=== PATIENT | female | born 1990 | race Caucasian/White ===

== ENCOUNTER 2019-06-09 19:17 | Emergency (ER) | payer BC, OTHER ==
[2019-06-09 19:42] LABS: BILIRUBIN,URINE NEGATIVE (NEGATIVE); CLARITY,URINE CLEAR; COLOR,URINE YELLOW; GLUCOSE, URINE (UA) NEGATIVE (NEGATIVE); KETONES,URINE NEGATIVE (NEGATIVE); LEUKOCYTE ESTERASE ,URINE NEGATIVE (NEGATIVE); NITRITE,URINE NEGATIVE (NEGATIVE); PH,URINE 6.5 (5-9); PROTEIN,URINE NEGATIVE (NEGATIVE)
[2019-06-09 19:54] LABS: AMORPHOUS SEDIMENT,UR RARE AMOR URATES /LPF; BACTERIA,URINE TRACE /HPF
[2019-06-09 19:57] LABS: BASOPHILS % (AUTO) 0 % (0-10); EOSINOPHILS # (AUTO) 0.2 10^3/uL (0.0-0.3); EOSINOPHILS % (AUTO) 3 % (0-10); HEMATOCRIT 34 % (35-52); HEMOGLOBIN 11.6 G/DL (11.5-16.0); LYMPHOCYTES # (AUTO) 2.7 X 10^3 (1.0-4.0); LYMPHOCYTES % (AUTO) 29 % (12-44); MEAN CORPUSCULAR HEMOGLOBIN 30 PG (25-34); MEAN CORPUSCULAR HGB CONC 34 G/DL (32-36); MEAN CORPUSCULAR VOLUME 86 FL (80-99); MEAN PLATELET VOLUME 10.1 FL (7.4-10.4); MONOCYTES # (AUTO) 0.6 X 10^3 (0.0-1.0); MONOCYTES % (AUTO) 6 % (0-12); NEUTROPHILS # (AUTO) 5.6 X 10^3 (1.8-7.8); NEUTROPHILS % (AUTO) 62 % (42-75); PLATELET COUNT 305 10^3/uL (130-400); RED CELL DISTRIBUTION WIDTH 12.2 % (10.0-14.5); WHITE BLOOD COUNT 9.1 10^3/uL (4.3-11.0)
[2019-06-09 20:12] LABS: ALANINE AMINOTRANSFERASE 25 U/L (0-55); ALBUMIN 3.9 GM/DL (3.2-4.5); ALKALINE PHOSPHATASE 55 U/L (40-136); BILIRUBIN,TOTAL 0.2 MG/DL (0.1-1.0); BUN/CREATININE RATIO 11; CALCIUM 9.2 MG/DL (8.5-10.1); CARBON DIOXIDE 21 MMOL/L (21-32); CHLORIDE 104 MMOL/L (98-107); CREATININE SERUM 0.65 MG/DL (0.60-1.30); GFR ESTIMATED > 60; GLUCOSE 80 MG/DL (70-105); POTASSIUM 3.7 MMOL/L (3.6-5.0); SODIUM 136 MMOL/L (135-145); TOTAL PROTEIN 6.9 GM/DL (6.4-8.2)
--- NOTE | 2019-06-09 20:23 | ED GU-Female ---
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 Pt reports onset of symptoms to be 06/03/19. Pt reports discomfort became severe this morning, but has gradually decreased since 1200. Denies nausea, vomiting, diarrhea, fever, chills, discharge, or vaginal bleeding. Pt reports to be approx 17wks . A&oX4. at side. Nursing Sepsis Screen: No Definite Risk Source: patient, spouse Exam Limitations: no limitations History of Present Illness Date Seen by Provider: Jun 09, 2019 Time Seen by Provider: 19:30 Initial Comments 28-year-old female patient presents with complaints of right lower quadrant discomfort 1 week. Patient reports pain has been intermittent and sharp in nature. Patient states pain had increased this a.m., but now rates pain at a 2/10. Pain is worse with standing for long periods. She is approximately 17 weeks gestation. Denies vaginal bleeding, vaginal discharge, nausea, vomiting, diarrhea, fever, constipation. Timing/Duration: week, intermittent, other (improved) Severity/Quality: sharp Location: RLQ Radiation: groin (radiates into the right groin) Activities at Onset: other (standing) Prior Genitourinary Problems: none Sexual [place] History: less than 2 months ago, single partner Modifying Factors: Worsens With Movement, Worsens With Other (worse with standing) Allergies and Home Medications Patient Home Medication List Home Medication List Reviewed: Yes Review of Systems Review of Systems Constitutional: No chills, No dizziness, No fever, No malaise EENTM: no symptoms reported Respiratory: No cough, No dyspnea on exertion, No orthopnea, No phlegm, No short of breath Cardiovascular: No chest pain, No edema, No palpitations, No syncope Gastrointestinal: see HPI, abdominal pain (RLQ); No constipation, No diarrhea, No hematemesis, No loss of appetite, No melena, No nausea, No vomiting Genitourinary: denies burning, denies discharge, denies dysuria, denies frequency, denies flank pain, denies hematuria : Yes Musculoskeletal: No back pain, No joint pain Skin: no symptoms reported Psychiatric/Neurological: No Symptoms Reported All Other Systemes Reviewed Negative Unless Noted: Yes (Negative excepted noted.) Past Rzkkyid-Pzedeo-Cdnpjg Hx Past Med/Social Hx: Reviewed Nursing Past Med/Soc Hx Patient Social History Alcohol Use: Denies Use Recreational Drug Use: No Smoking Status: Never a Smoker 2nd Hand Smoke Exposure: No Recent Foreign Travel: No Contact w/Someone Who Travel: No Recent Infectious Disease Expo: No Recent Hopitalizations: No Seasonal Allergies Seasonal Allergies: No Past Medical History Surgeries: No Respiratory: No Cardiac: No Neurological: No : Yes Hx : 1 Hx Para: 0 Hx Total # of Abortions (Sp): 0 Reproductive Disorders: No Female Reproductive Disorders: Denies Genitourinary: No Gastrointestinal: No Musculoskeletal: No Endocrine: No HEENT: No Cancer: No Psychosocial: No Integumentary: No Family Medical History Reviewed Nursing Family Hx No Pertinent Family Hx Physical Exam Vital Signs Vital Signs - First Documented 06/09/19 19:20 Temp 36.6 Pulse 91 Resp 17 B/P (MAP) 120/84 (96) Pulse Ox 100 O2 Delivery Room Air Capillary Refill : Less Than 3 Seconds Height, Weight, BMI Height: '" Weight: lbs. oz. kg; BMI Method: General Appearance: WD/WN, no apparent distress HEENT: PERRL/EOMI, pharynx normal Neck: supple, normal inspection Cardiovascular: normal peripheral pulses, regular rate, rhythm, no edema, no gallop, no JVD, no murmur Respiratory: lungs clear, normal breath sounds, no respiratory distress, no accessory muscle use Gastrointestinal: normal bowel sounds, soft, no pulsatile mass; No distended, No guarding, No rebound; tenderness (VERY MILD RLQ AND RT GROIN TTP), other (uterine fundus consistent with a 17 week gestation uterus.) Back: normal inspection, no CVA tenderness Extremities: no pedal edema, normal capillary refill Neurologic/Psychiatric: alert, normal mood/affect, oriented x 3 Skin: normal color, warm/dry Progress/Results/Core Measures Suspected Sepsis Recent Fever Within 48 Hours: No Infection Criteria Present: None New/Unexplained Altered Menta: No Sepsis Screen: No Definite Risk SIRS Temperature: Pulse: 91 Respiratory Rate: 17 Laboratory Tests 06/09/19 19:45: White Blood Count 9.1 Blood Pressure 120 /84 Mean: 96 Laboratory Tests 06/09/19 19:45: Creatinine 0.65, Platelet Count 305, Total Bilirubin 0.2 Results/Orders Lab Results Laboratory Tests Test 06/09/19 19:30 06/09/19 19:45 Range/Units Urine Color YELLOW Urine Clarity CLEAR Urine pH 6.5 5-9 Urine Specific [place] 1.020 1.016-1.022 Urine Protein NEGATIVE NEGATIVE Urine Glucose (UA) NEGATIVE NEGATIVE Urine Ketones NEGATIVE NEGATIVE Urine Nitrite NEGATIVE NEGATIVE Urine Bilirubin NEGATIVE NEGATIVE Urine Urobilinogen 0.2 < = 1.0 MG/DL Urine Leukocyte Esterase NEGATIVE NEGATIVE Urine RBC (Auto) NEGATIVE NEGATIVE Urine RBC NONE /HPF Urine WBC 2-5 /HPF Urine Crystals PRESENT H /LPF Urine Amorphous Sediment RARE KADEN URATES H /LPF Urine Bacteria TRACE /HPF Urine Casts NONE /LPF Urine Mucus NEGATIVE /LPF Urine Culture Indicated NO White Blood Count 9.1 4.3-11.0 10^3/uL Red Blood Count 3.92 L 4.35-5.85 10^6/uL Hemoglobin 11.6 11.5-16.0 G/DL Hematocrit 34 L 35-52 % Mean Corpuscular Volume 86 80-99 FL Mean Corpuscular Hemoglobin 30 25-34 PG Mean Corpuscular Hemoglobin Concent 34 32-36 G/DL Red Cell Distribution Width 12.2 10.0-14.5 % Platelet Count 305 130-400 10^3/uL Mean Platelet Volume 10.1 7.4-10.4 FL Neutrophils (%) (Auto) 62 42-75 % Lymphocytes (%) (Auto) 29 12-44 % Monocytes (%) (Auto) 6 0-12 % Eosinophils (%) (Auto) 3 0-10 % Basophils (%) (Auto) 0 0-10 % Neutrophils # (Auto) 5.6 1.8-7.8 X 10^3 Lymphocytes # (Auto) 2.7 1.0-4.0 X 10^3 Monocytes # (Auto) 0.6 0.0-1.0 X 10^3 Eosinophils # (Auto) 0.2 0.0-0.3 10^3/uL Basophils # (Auto) 0.0 0.0-0.1 10^3/uL Sodium Level 136 135-145 MMOL/L Potassium Level 3.7 3.6-5.0 MMOL/L Chloride Level 104 98-107 MMOL/L Carbon Dioxide Level 21 21-32 MMOL/L Anion Gap 11 5-14 MMOL/L Blood Urea Nitrogen 7 7-18 MG/DL Creatinine 0.65 0.60-1.30 MG/DL Estimat Glomerular Filtration Rate > 60 BUN/Creatinine Ratio 11 Glucose Level 80 70-105 MG/DL Calcium Level 9.2 8.5-10.1 MG/DL Corrected Calcium 9.3 8.5-10.1 MG/DL Total Bilirubin 0.2 0.1-1.0 MG/DL Aspartate Amino Transf (AST/SGOT) 19 5-34 U/L Alanine Aminotransferase (ALT/SGPT) 25 0-55 U/L Alkaline Phosphatase 55 40-136 U/L Total Protein 6.9 6.4-8.2 GM/DL Albumin 3.9 3.2-4.5 GM/DL My Orders Orders - XENIA SOLITARIO Cbc With Automated Diff (06/09/19 19:31) Comprehensive Metabolic Panel (06/09/19 19:31) Ua Culture If Indicated (06/09/19 19:31) Heart Tones (06/09/19 19:43) Vital Signs/I&O 06/09/19 06/09/19 19:20 20:34 Temp 36.6 36.6 Pulse 91 81 Resp 17 16 B/P (MAP) 120/84 (96) 123/75 (96) Pulse Ox 100 99 O2 Delivery Room Air Room Air Capillary Refill : Less Than 3 Seconds Blood Pressure Mean: 96 Departure Communication (Admissions) Patient seen and evaluated. Urinalysis and initial labs obtained.. heart tones 152 bpm. Patient denies need for Tylenol for pain medication. lab findings discussed with the patient. Patient reports pain continues to improve. Emergency department and uneventful. 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 She is to call for an appointment time. She will return to the emergency department immediately for worsened symptoms or any other concerns. Impression Primary Impression: Round ligament pain Additional Impression: 17 weeks gestation of Disposition: HOME, SELF-CARE Condition: Improved Departure-Patient Inst. Decision time for Depature: 20:20 Referrals: SHAY ROBLES DO (PCP) Primary Care Physician Patient Instructions: Round Ligament Pain Add. Discharge Instructions: All discharge instructions reviewed with patient and/or family. Voiced understanding. Tylenol over the county as needed for pain. warm packs as needed. You may use a supportive band if needed. Follow-up with Dr. Robles for recheck as needed. Return to the emergency department for worsened pain, fever, vaginal bleeding, vaginal discharge, abdominal swelling, or any other concerns. Images Torso/Trunk 1 - Tenderness XENIA SOLITARIO Jun 09, 2019 20:23
[2019-06-09 20:34] VITALS: BP 123/75
--- OUTSIDE RECORDS SUMMARY | 2019-06-12 10:08 | XMS REPORT | Continuity of Care Document ---
Author Organization Unknown Address Unknown Phone Unavailable Allergies There is no data. Medications There is no data. Problems There is no data. Procedures There is no data. Results Test Result Range Complete urinalysis with reflex to cultu re - 06/09/19 19:30 Urine color determination YELLOW NRG Urine clarity determination CLEAR NR G Urine pH measurement by test strip 6.5 5-9 Specific gravity of urine by test strip 1.020 1.016-1.022 Urine protein assay by test strip, semi-quantitative NEGATIVE NEGATIVE Urine glucose detection by automated test strip NE GATIVE NEGATIVE Erythrocytes detection in urine sediment by light micr oscopy NEGATIVE NEGATIVE Urine ketones detection by automated test strip NE GATIVE NEGATIVE Urine nitrite detection by test strip NEGATIVE NEGATIVE Urine total bilirubin detection by test strip NEGA TIVE NEGATIVE Urine urobilinogen measurement by automated test strip (mass/volume) 0.2 mg/dL < = 1.0 Urine leukocyte esterase detection by dipstick NEG ATIVE NEGATIVE Automated urine sediment erythrocyte cou nt by microscopy (number/high power field) NONE NRG Automated urine sediment leukocyte count by microscopy (number/high power field) [HPF] NRG Bacteria detection in urine sediment by light microsco py TRACE NRG Crystals detection in urine sediment by light microsco py PRESENT NRG Casts detection in urine sediment by light microscopy NONE NRG Mucus detection in urine sediment by light microscopy NEGATIVE NRG Complete urinalysis with reflex to culture NO NRG Amorphous sediment detection in urine sediment by ligh t microscopy RARE KADEN URATES NRG Complete blood count (CBC) with automate d white blood cell (WBC) differential - 06/09/19 19:45 Blood leukocytes automated count (number/volume) 9.1 10*3/uL 4.3-11.0 Blood erythrocytes automated count (number/volume) 3.92 10*6/uL 4.35-5.85 Venous blood hemoglobin measurement (mass/volume) 11.6 g/dL 11.5-16.0 Blood hematocrit (volume fraction) 34 % 35-52 Automated erythrocyte mean corpuscular volume 86 [ foz_us] 80-99 Automated erythrocyte mean corpuscular h emoglobin (mass per erythrocyte) 30 pg 25-34 Automated erythrocyte mean corpuscular h emoglobin concentration measurement (mass/volume) 34 g/dL 32-36 Automated erythrocyte distribution width ratio 12. 2 % 10.0- 14.5 Automated blood platelet count (count/volume) 305 10*3/uL 130-400 Automated blood platelet mean volume measurement 10.1 [foz_us] 7.4-10.4 Automated blood neutrophils/100 leukocytes 62 % 42-75 Automated blood lymphocytes/100 leukocytes 29 % 12-44 Blood monocytes/100 leukocytes 6 % 0-12 Automated blood eosinophils/100 leukocytes 3 % 0-10 Automated blood basophils/100 leukocytes 0 % 0-10 Blood neutrophils automated count (number/volume) 5.6 10*3 1.8-7.8 Blood lymphocytes automated count (number/volume) 2.7 10*3 1.0-4.0 Blood monocytes automated count (number/volume) 0. 6 10*3 0.0-1.0 Automated eosinophil count 0.2 10*3/uL 0 .0-0.3 Automated blood basophil count (count/volume) 0.0 10*3/uL 0.0-0.1 Comprehensive metabolic panel - 06/09/19 19:45 Serum or plasma sodium measurement (moles/volume) 136 mmol/L 135-145 Serum or plasma potassium measurement (moles/volume) 3.7 mmol/L 3.6-5.0 Serum or plasma chloride measurement (moles/volume) 104 mmol/L 98-107 Carbon dioxide 21 mmol/L 21-32 Serum or plasma anion gap determination (moles/volume) 11 mmol/L 5-14 Serum or plasma urea nitrogen measurement (mass/volume ) 7 mg/dL 7-18 Serum or plasma creatinine measurement (mass/volume) 0.65 mg/dL 0.60-1.30 Serum or plasma urea nitrogen/creatinine mass ratio 11 NRG Serum or plasma creatinine measurement w ith calculation of estimated glomerular filtration rate > NRG Serum or plasma glucose measurement (mass/volume) 80 mg/dL 70-105 Serum or plasma calcium measurement (mass/volume) 9.2 mg/dL 8.5-10.1 Serum or plasma total bilirubin measurement (mass/volu me) 0.2 mg/dL 0.1-1.0 Serum or plasma alkaline phosphatase alfredo surement (enzymatic activity/volume) 55 U/L 40-136 Serum or plasma aspartate aminotransfera se measurement (enzymatic activity/volume) 19 U/L 5-34 Serum or plasma alanine aminotransferase measurement (enzymatic activity/volume) 25 U/L 0-55 Serum or plasma protein measurement (mass/volume) 6.9 g/dL 6.4-8.2 Serum or plasma albumin measurement (mass/volume) 3.9 g/dL 3.2-4.5 CALCIUM CORRECTED 9.3 mg/dL 8.5-10.1 Encounters ACCT No. Visit Date/Time Discharge Status Pt. Type Provider Facility Loc./Unit Complaint [id number] 06/09/2019 19:20:00 020 20:34:00 DIS Emergency XENIA SANTIZO [facility] ER RLQ PAIN
== END 2019-06-09 20:34 | disposition home or self-care (01) ==
LOC: ER 19:20
DX: O26.892 Other specified pregnancy related conditions, second trimester (principal); R10.2 Pelvic and perineal pain; Z3A.17 17 weeks gestation of pregnancy
CPT/HCPCS: 36415; 80053; 81000; 85025

== ENCOUNTER → 2019-07-16 | Outpatient (CLI) | payer BC ==
--- NOTE | 2019-07-16 13:27 | Diagnostic Imaging Report ---
INDICATION: survey. TECHNIQUE: Multiple real-time grayscale images were obtained over the gravid uterus. COMPARISON: None FINDINGS: There is a single live fetus in a cephalic presentation. heart rate was recorded at 146 bpm. Placenta is anterior. Amniotic fluid index is 14.6 cm. Cervical length is 5.9 cm. kidneys, bladder and stomach are unremarkable. brain is unremarkable. There is a four-chamber heart. There is a three-vessel cord with normal insertion. The spine is unremarkable. Biometrical measurements are as follows: Biparietal 5.27 cm, age 22 weeks 1 days. Head circumference 19.70 cm, age 22 weeks 0 days. Abdominal circumference 17.59 cm, age 22 weeks 4 days. Femur length 3.80 cm, age 22 weeks 2 days. Sonographic estimate age: 22 weeks 2 days. Sonographic estimated date of delivery: 11/17/2019. Estimated Weight: 491 gm (+/- 72 gm). LMP percentile: 59%. heart rate: 146 beats per minute. number: 1 of 1. IMPRESSION: Single live IUP 22 weeks 2 days gestational age. Estimated date of confinement sonographically is 11/17/2019. Dictated by: Dictated on workstation # [id number]
== END ==
LOC: RAD 12:13
PROVIDERS: ATTEND Obstetrics & Gynecology
DX: Z36.9 Encounter for antenatal screening, unspecified (principal); Z3A.22 22 weeks gestation of pregnancy
CPT/HCPCS: 76805

== ENCOUNTER 2019-11-16 03:56 | Inpatient (IN) | payer BC ==
[~2019-11-16] VITALS: Ht 154.9 cm; Wt 81.4 kg
[2019-11-16] VITALS (49 sets, daily range): BP systolic 94–147; BP diastolic 53–95
--- NOTE | 2019-11-16 04:00 | NUR ---
SHERRIE MCCONNELL presented to unit via wheelchair from ED, accompanied by s/o and ed staff, with c/o CONTRACTIONS. SHERRIE MCCONNELL weighed, gowned, voided, and to bed. EFHM and TOCO applied, VS taken. SHERRIE MCCONNELL oriented to bed controls, call light, TV, heat, and A/C controls.
[2019-11-16 04:27] LABS: BILIRUBIN,URINE NEGATIVE (NEGATIVE); CLARITY,URINE CLEAR; COLOR,URINE YELLOW; GLUCOSE, URINE (UA) NEGATIVE (NEGATIVE); KETONES,URINE NEGATIVE (NEGATIVE); LEUKOCYTE ESTERASE ,URINE NEGATIVE (NEGATIVE); NITRITE,URINE NEGATIVE (NEGATIVE); PROTEIN,URINE NEGATIVE (NEGATIVE)
[2019-11-16 04:34] LABS: RBC,URINE 0-2 /HPF
[2019-11-16 04:35] LABS: BACTERIA,URINE TRACE /HPF; CALCIUM OXALATE CRYSTALS,UR RARE /LPF
[2019-11-16] MEDS ORDERED: D5 LR IV SOLUTION 1,000 ML IV ONE (06:22)
[2019-11-16 06:53] LABS: BASOPHILS % (AUTO) 0 % (0-10); EOSINOPHILS # (AUTO) 0.1 10^3/uL (0.0-0.3); EOSINOPHILS % (AUTO) 1 % (0-10); HEMATOCRIT 36 % (35-52); HEMOGLOBIN 11.9 G/DL (11.5-16.0); LYMPHOCYTES # (AUTO) 1.7 X 10^3 (1.0-4.0); LYMPHOCYTES % (AUTO) 12 % (12-44); MEAN CORPUSCULAR HEMOGLOBIN 29 PG (25-34); MEAN CORPUSCULAR HGB CONC 34 G/DL (32-36); MEAN CORPUSCULAR VOLUME 86 FL (80-99); MEAN PLATELET VOLUME 11.3 FL (7.4-10.4); MONOCYTES # (AUTO) 0.8 X 10^3 (0.0-1.0); MONOCYTES % (AUTO) 5 % (0-12); NEUTROPHILS # (AUTO) 11.5 X 10^3 (1.8-7.8); NEUTROPHILS % (AUTO) 82 % (42-75); PLATELET COUNT 272 10^3/uL (130-400); RED CELL DISTRIBUTION WIDTH 14.3 % (10.0-14.5)
--- OUTSIDE RECORDS SUMMARY | 2019-11-16 06:57 | XMS REPORT | Continuity of Care Document ---
Author Author The SHERRIE Velasquez Organization [employer] Address Unknown Phone Unavailable Allergies There is no data. Medications There is no data. Problems Date Dx Coded Attending Type Code Diagnosis Diagnosed By 06/09/2019 XNEIA SANTIZO Ot O26.892 OTH RELATED CONDITIONS, SECOND 06/09/2019 XENIA SANTIZO Ot R10.2 PELVIC AND PERINEAL PAIN 06/09/2019 XENIA SANTIZO Ot Z3A.17 17 WEEKS GESTATION OF 07/17/2019 FENECH DO, SHAY S Ot Z36.9 ENCOUNTER FOR SCREENING, UNSPE 07/17/2019 FENECH DO, SHAY S Ot Z3A.22 22 WEEKS GESTATION OF 07/17/2019 FENECH DO, SHAY S Ot Z36.9 ENCOUNTER FOR SCREENING, UNSPE 07/17/2019 FENECH DO, SHAY S Ot Z3A.22 22 WEEKS GESTATION OF 07/22/2019 FENECH DO, SHAY S Ot Z36.9 ENCOUNTER FOR SCREENING, UNSPE 07/22/2019 FENECH DO, SHAY S Ot Z3A.22 22 WEEKS GESTATION OF 07/22/2019 FENECH DO, SHAY S Ot Z36.9 ENCOUNTER FOR SCREENING, UNSPE 07/22/2019 FENECH DO, SHAY S Ot Z3A.22 22 WEEKS GESTATION OF 07/31/2019 FENECH DO, SHAY S Ot Z36.9 ENCOUNTER FOR SCREENING, UNSPE 07/31/2019 FENECH DO, SHAY S Ot Z3A.22 22 WEEKS GESTATION OF Procedures There is no data. Results Test [...] g/dL 3.2-4.5 CALCIUM CORRECTED 9.3 mg/dL 8.5-10.1 Complete urinalysis with reflex to cultu re - 11/16/19 04:00 Urine color determination YELLOW NRG Urine clarity determination CLEAR NR G Urine pH measurement by test strip 6.0 5-9 Specific gravity of urine by test strip 1.010 1.016-1.022 Urine protein assay by test strip, [...] cou nt by microscopy (number/high power field) [HPF] NRG Automated urine sediment leukocyte count by microscopy (number/high power field) NONE NRG Bacteria detection in urine sediment by light microsco py TRACE NRG Squamous epithelial cells detection in u rine sediment by light microscopy 10-25 NRG Crystals detection in urine sediment by light microsco py PRESENT NRG Casts detection in urine sediment by light microscopy NONE NRG Mucus detection in urine sediment by light microscopy NEGATIVE NRG Complete urinalysis with reflex to culture NO NRG Calcium oxalate crystals detection in ur ine sediment by light microscopy RARE NRG Encounters ACCT No. Visit Date/Time Discharge Status Pt. Type Provider Facility Loc./Unit Complaint [id number] 11/15/2019 13:58:00 15:30:00 DIS Outpatient GOPAL MARQUES MD [facility] WSo R/O LEAKING FLUID [id number] 07/16/2019 12:13:00 23:59:59 CLS Outpatient SHAY ROBLES DO [facility] RAD ANATOMY SCAN [id number] 06/09/2019 19:20:00 20:34:00 DIS Emergency XENIA SANTIZO [facility] ER RLQ PAIN [id number] 11/16/2019 06:12:[address] Inpatient SHAY ROBLES DO [facility] LDRP LABOR
[2019-11-16] MEDS ORDERED: LACTATED RINGERS 1,000 ML IV NR (07:00)
[2019-11-16] MEDS: D5 LR IV SOLUTION 1,000 ML IV SCH ×2 (07:08→10:20)
[2019-11-16] MEDS ORDERED: fentaNYL 2 mcg/ml BUPIVA 0.125 100 ML ONE (07:16)
[2019-11-16] MEDS ORDERED: fentaNYL INJECTION 100 MCG/2 ML AMP ONE (08:00)
[2019-11-16] MEDS ORDERED: BUPIVACAINE 0.25% 30 ML (SENSORCAINE) VIAL ONE (08:00)
[2019-11-16] MEDS ORDERED: LIDOCAINE PF 2% 5 ML (XYLOCAINE) VIAL ONE (08:00)
--- NOTE | 2019-11-16 08:10 | NUR ---
0810 [address]. KARELY HOGUE & DALTON MOLINA here for epidural placement. Procedure explained, consent reviewed and signed by anesthesia. Questions answered to patient's satisfaction. Time out taken to verify correct patient/procedure. 0813 Patient up to side of bed, assisted into sitting position. 0816 Betadine prep done x3 and sterile drape applied. 0823 Local done, see anesthesia record. 0829 Test dose given, see anesthesia record for drug and dosage. 0830 Test dose #2 given, see anesthesia record for drug and dosage. Epidural catheter secured in place. Epidural placement complete. 0835 Assisted back into bed, monitors adjusted. Epidural dosed, see anesthesia record. Epidural infusing @12cc/hr stated per pump; see EMAR for further. Patient tolerated procedure well.
--- NOTE | 2019-11-16 08:47 | History & Physical-OB ---
OB - Chief Complaint & HPI Date/Time Date of Admission: Date of Admission: Nov 16, 2019 at 06:12 Date seen by a Provider: Nov 16, 2019 Time Seen by a Provider: 08:45 Chief Complaint/History OB-Reason for Admission/Chief: Onset of Labor Hx : 1 Hx Para: 0 Expected Date of Delivery: Nov 19, 2019 Gestational Age in Weeks: 39 Gestational Age in Days: 0 Admission Nurse Assessment Rev: Yes History of Labs A pos Antibody neg RNI RPR NR HBsAg NR HCsAg NR HIV NR GC GBS neg Allergies and Home Medications Allergies Coded Allergies: No Known Drug Allergies (Unverified , 11/16/19) Home Medications No Active Prescriptions or Reported Meds Patient Home Medication List Home Medication List Reviewed: Yes OB - History Hx of Present Care: Yes Ultrasounds: Normal mid trimester US Obstetrical Complications: None Medical Complications: None Obstetrical History Hx : 1 Hx Para: 0 Delivery History Adverse Rxn to Tranfusion: No Patient Past Medical History n/a Social History/Family History Alcohol Use: Denies Use Recreational Drug Use: No 2nd Hand Smoke Exposure: No Immunizations Hepatitis A: Yes Hepatitis B: Yes OB - Admission Exam Physical Exam Vitals: Vital Signs 11/16/19 11/16/19 11/16/19 05:00 05:53 07:00 Temp 36.7 Pulse 80 Resp 18 B/P (MAP) 129/81 (97) Pulse Ox 96 O2 Delivery Room Air HEENT: NCAT Heart: Rhythm Normal Lungs: Clear Abdomen: Gravid Extremities: Normal Reflexes: Normal Cervical Dilatation: 3cm Effacement: 75% Station: -1 Membranes: Intact Heart Rate: 140's Accelerations: Accelerations Present Decelerations: No Decelerations Short Term Variability: Present Mcfp Variability: Average (6-25) Contractions on Admission: < 5 Minutes Apart Intensity: Moderate Labs Laboratory Tests Test 11/16/19 04:00 11/16/19 06:35 Range/Units Urine Color YELLOW Urine Clarity CLEAR Urine pH 6.0 5-9 Urine Specific [place] 1.010 L 1.016-1.022 Urine Protein NEGATIVE NEGATIVE Urine Glucose (UA) NEGATIVE NEGATIVE Urine Ketones NEGATIVE NEGATIVE Urine Nitrite NEGATIVE NEGATIVE Urine Bilirubin NEGATIVE NEGATIVE Urine Urobilinogen 0.2 < = 1.0 MG/DL Urine Leukocyte Esterase NEGATIVE NEGATIVE Urine RBC (Auto) NEGATIVE NEGATIVE Urine RBC 0-2 /HPF Urine WBC NONE /HPF Urine Squamous Epithelial Cells 10-25 H /HPF Urine Crystals PRESENT H /LPF Urine Calcium Oxalate Crystals RARE H /LPF Urine Bacteria TRACE /HPF Urine Casts NONE /LPF Urine Mucus NEGATIVE /LPF Urine Culture Indicated NO White Blood Count 14.0 H 4.3-11.0 10^3/uL Red Blood Count 4.15 L 4.35-5.85 10^6/uL Hemoglobin 11.9 11.5-16.0 G/DL Hematocrit 36 35-52 % Mean Corpuscular Volume 86 80-99 FL Mean Corpuscular Hemoglobin 29 25-34 PG Mean Corpuscular Hemoglobin Concent 34 32-36 G/DL Red Cell Distribution Width 14.3 10.0-14.5 % Platelet Count 272 130-400 10^3/uL Mean Platelet Volume 11.3 H 7.4-10.4 FL Neutrophils (%) (Auto) 82 H 42-75 % Lymphocytes (%) (Auto) 12 12-44 % Monocytes (%) (Auto) 5 0-12 % Eosinophils (%) (Auto) 1 0-10 % Basophils (%) (Auto) 0 0-10 % Neutrophils # (Auto) 11.5 H 1.8-7.8 X 10^3 Lymphocytes # (Auto) 1.7 1.0-4.0 X 10^3 Monocytes # (Auto) 0.8 0.0-1.0 X 10^3 Eosinophils # (Auto) 0.1 0.0-0.3 10^3/uL Basophils # (Auto) 0.0 0.0-0.1 10^3/uL OB - Assessment/Plan/Diagnosis Assessment Assessment: active labor Admission Dx 28 yo @ 39.4 Active labor GBS neg Admission Status: Inpatient Order (span 2 midnights) Reason for Inpatient Admission: Active labor at term Plan Plan: Expectant Management SHAY ROBLES DO Nov 16, 2019 08:47
[2019-11-16] MEDS ORDERED: OXYTOCIN PRE-MIX DRIP 500 ML IV SCH ×2 (09:19→16:07)
[2019-11-16] MEDS ORDERED: CATHETER FLUSH 10 ML SYR IV SCH ×2 (14:00→22:00)
[2019-11-16] MEDS ORDERED: LIDOCAINE/EPI 2% 1:200,00 (XYLOCAINE) 10 ML VIAL ONE (14:25)
--- NOTE | 2019-11-16 16:13 | OB Labor & Delivery Record ---
L&D History Date of Service Date of Service: Nov 16, 2019 History Expected Date of Delivery: Nov 19, 2019 Gestational Age in Weeks: 39 Hx : 1 Hx Para: 0 Complications Events: Routine care Operative Indications (Cesarea: N/A-Vaginal Delivery Intrapartal Events: None L&D Stage1 Stage One Onset of Labor - Date: Nov 16, 2019 Monitors and Tracing Monitor Mode: External Heart Rate: 150 Monitor Accelerations: Uniform Monitor Decelerations: Variable Station: -2 Correction Variability: Average (6-10) Short Term Variability: Present Presentation: Vertex Vital Signs VS - Last 72 Hours, by Label 11/16/19 11/16/19 11/16/19 11/16/19 05:00 05:50 05:53 06:00 Temp 36.7 36.7 36.7 Pulse 80 72 80 Resp 18 18 18 18 B/P (MAP) 129/81 (97) Pulse Ox 96 96 96 O2 Delivery Room Air Room Air Room Air Room Air 11/16/19 11/16/19 11/16/19 11/16/19 07:00 08:14 08:16 08:20 Pulse 90 75 84 Resp 18 18 18 18 B/P (MAP) 144/72 (96) 134/63 (86) 139/79 (99) Pulse Ox 97 98 O2 Delivery Room Air Room Air Room Air Room Air 11/16/19 11/16/19 11/16/19 11/16/19 08:22 08:25 08:28 08:31 Pulse 88 83 82 85 Resp 18 18 18 18 B/P (MAP) 141/80 (100) 130/69 (89) 131/66 (87) 127/67 (87) Pulse Ox 98 97 O2 Delivery Room Air Room Air Room Air Room Air 11/16/19 11/16/19 11/16/19 11/16/19 08:34 08:38 08:43 08:49 Temp 36.7 Pulse 87 81 84 77 Resp 18 18 18 18 B/P (MAP) 134/60 (84) 123/59 (80) 119/55 (76) 125/57 (79) Pulse Ox 97 98 97 96 O2 Delivery Room Air Room Air Room Air Room Air 8/15/20 8/15/20 8/15/20 8/15/20 08:54 08:59 09:15 09:21 Temp 36.4 Pulse 84 82 82 Resp 18 18 18 B/P (MAP) 119/74 (89) 115/73 (87) 120/60 (80) Pulse Ox 97 97 96 O2 Delivery Room Air Room Air Room Air 11/16/19 11/16/19 11/16/19 11/16/19 09:35 09:44 09:46 10:03 Temp 36.7 Pulse 77 71 77 Resp 18 18 18 B/P (MAP) 117/59 (78) 94/53 (67) 99/53 (68) Pulse Ox 95 99 100 O2 Delivery Room Air Non Rebreather Non Rebreather O2 Flow Rate 15.00 15.00 11/16/19 11/16/19 11/16/19 11/16/19 10:20 10:33 10:48 11:03 Pulse 82 78 74 78 Resp 18 18 18 18 B/P (MAP) 106/53 (70) 103/55 (71) 103/58 (73) 103/58 (73) Pulse Ox 99 100 100 100 O2 Delivery Non Rebreather Non Rebreather Non Rebreather Non Rebreather O2 Flow Rate 15.00 15.00 15.00 15.00 11/16/19 11/16/19 11/16/19 11/16/19 11:18 11:34 11:43 11:48 Pulse 80 94 96 Resp 18 18 18 B/P (MAP) 109/56 (73) 112/55 (74) 119/66 (83) Pulse Ox 99 100 96 O2 Delivery Non Rebreather Non Rebreather Room Air Room Air O2 Flow Rate 15.00 15.00 11/16/19 11/16/19 11/16/19 11/16/19 12:04 12:18 12:33 12:48 Temp 37.4 Pulse 87 88 100 87 Resp 18 18 18 18 B/P (MAP) 131/61 (84) 120/61 (80) 126/65 (85) 134/63 (86) Pulse Ox 95 95 94 95 O2 Delivery Room Air Room Air Room Air Room Air 11/16/19 11/16/19 11/16/19 13:04 13:18 13:32 Pulse 93 87 97 Resp 18 18 18 B/P (MAP) 125/73 (90) 128/73 (91) 131/67 (88) Pulse Ox 96 95 95 O2 Delivery Room Air Room Air Room Air Rupture of Membranes Spontaneous Ruture of Membrane: No Amniotic Membrane Rupture Time: 09 Amniotic Membrane Fluid Desc.: Clear Vaginal Bleeding Description: Normal Show Induction/Anesthesia Epidural Cath Placement - Time: 08 Progress/Notes AROM performed this AM after epidural and patient had been admitted in active labor. Patient attempted on Pitocin augmentation this was followed by 2 min decel. After which contractions continued without further augmentation she p rogressed to complete and +2 station. L&D Stage2 Stage Two Stage II Date: Nov 16, 2019 Monitors and Tracing Monitor Mode: External Heart Rate: 170 Monitor Accelerations: Uniform Monitor Decelerations: Variable Data Conversion Operator Variability: Average (6-10) Short Term Variability: Present Position: Right Occiput Anterior Presentation: Vertex Delivery Type Delivery Method: Spontaneous Vaginal Anterior Shoulder: Left Episiotomy/Perineal Laceration Laceraction(s)/Extensions: Yes Episiotomy Description: Perineal Extension/lac, 2nd degree Degree (describe repair) 2nd degree perineal laceration repaired using 3-0 and 2-0 vicryl suture Condition of Delivery 1 minute Comment: 8 5 minute Comment: 8 Notes Live male to mothers chest skin to skin, weight pending. Condition of Condition of Infant: Living Exam: No Observed Abnormalities Resuscitation Resuscitation: N/A - Spontaneous Resp L&D Stage3 Stage Three Stage III Date: Nov 16, 2019 Pictocin Pitocin Administration mu/min: 0 Pitocin ml/hr: 0 Pitocin Administration Comment: Increased to 30 mu wide open at delivery of placenta Placenta Delivery Placenta Delivery: Spontaneous Delivery Summary Summary Estimated blood loss (mL): 350 Attending at delivery: Shay Robles DO Condition of Delivery Examined: Cervix Examined, Uterus Explored Post Hemorrhage: No (s) Condition of Mother stable Condition of Infant (s) stable SHAY ROBLES DO Nov 16, 2019 16:13
[2019-11-16] MEDS ORDERED: BENZOCAINE/MENTHOL (DERMOPLAST) 60 ML CAN TP PRN (16:15)
[2019-11-16] MEDS ORDERED: MEASLES,MUMPS,RUBELLA 1 EA INJ SQ ONE (16:15)
[2019-11-16] MEDS ORDERED: WITCH HAZEL(TUCKS) 40 EA JAR TOP PRN (16:15)
[2019-11-16] MEDS ORDERED: TETANUS,DIPTH,PERTUSS P/F (BOOSTRIX) 0.5 ML VIAL IM ONE (16:15)
[2019-11-16] MEDS ORDERED: DIBUCAINE (NUPERCAINAL) 1% OINT 30 GM TOP PRN (16:15)
[2019-11-16] MEDS ORDERED: HYDROcodone/APAP 5 MG/325 MG (LORTAB) TAB PO PRN (16:15)
[2019-11-16] MEDS ORDERED: fentaNYL 2 mcg/ml BUPIVA 0.125 100 ML IV SCH (16:50)
[2019-11-16] MEDS ORDERED: CATHETER FLUSH 10 ML SYR IV PRN (17:00)
[2019-11-16] MEDS ORDERED: NALOXONE 0.4 MG/ML 1 ML (NARCAN) VIAL IV PRN (17:00)
[2019-11-16] MEDS: IBUPROFEN 600 MG (MOTRIN) TAB PO SCH ×3 (17:08→22:55)
--- NOTE | 2019-11-16 18:25 | NUR ---
REFER TO LABOR FLOW SHEET.
--- NOTE | 2019-11-16 20:00 | NUR ---
pt resting in bed. s/o at bedside. pt denies any needs. will continue to monitor.
[2019-11-16] MEDS: DOCUSATE SODIUM 100 MG (COLACE) CAP PO SCH (20:16)
[2019-11-17 02:10] VITALS: BP 122/77
[2019-11-17 04:48] LABS: BASOPHILS % (AUTO) 0 % (0-10); EOSINOPHILS # (AUTO) 0.1 10^3/uL (0.0-0.3); EOSINOPHILS % (AUTO) 1 % (0-10); HEMATOCRIT 29 % (35-52); HEMOGLOBIN 9.7 G/DL (11.5-16.0); LYMPHOCYTES # (AUTO) 2.8 X 10^3 (1.0-4.0); LYMPHOCYTES % (AUTO) 18 % (12-44); MEAN CORPUSCULAR HEMOGLOBIN 29 PG (25-34); MEAN CORPUSCULAR HGB CONC 33 G/DL (32-36); MEAN CORPUSCULAR VOLUME 87 FL (80-99); MEAN PLATELET VOLUME 10.8 FL (7.4-10.4); MONOCYTES % (AUTO) 7 % (0-12); NEUTROPHILS # (AUTO) 11.2 X 10^3 (1.8-7.8); NEUTROPHILS % (AUTO) 75 % (42-75); PLATELET COUNT 230 10^3/uL (130-400); RED CELL DISTRIBUTION WIDTH 14.6 % (10.0-14.5)
[2019-11-17] MEDS: IBUPROFEN 600 MG (MOTRIN) TAB PO SCH ×3 (05:25→17:16)
[2019-11-17 05:57] VITALS: BP 122/74
[2019-11-17] MEDS ORDERED: PRENATAL VITAMIN 1 EA TAB PO SCH (07:00)
[2019-11-17] MEDS ORDERED: FERROUS SULF 325 MG (IRON) TAB PO SCH (08:00)
[2019-11-17 08:45] VITALS: BP 135/88
--- NOTE | 2019-11-17 08:45 | NUR ---
initial shift assessment completed, see interventions for further. POC reviewed, states understanding.
--- NOTE | 2019-11-17 09:29 | Anesthesia-Regional Post-Op ---
Regional Patient Condition Mental Status: Alert, Oriented x3 Circulation: Same as Pre-Op Headache: Absent Sensation: Full Recovery Motor Block: Absent Post Op Complications Complications None Follow Up Care/Instructions Patient Instructions None needed. Anesthesia/Patient Condition Patient is doing well, no complaints, stable vital signs, no apparent adverse anesthesia problems. No complications reported per nursing. MARLON HOGUE CRNA Nov 17, 2019 09:29
--- NOTE | 2019-11-17 11:43 | Postpartum Progress Note ---
Note Note Day # 1 Subjective: Patient is without complaints. Ambulating, voiding. Tolerating a regular diet without nausea or vomiting. Normal lochia. Pain is well controlled with oral pain medications. Objective: Physical Exam: General - Alert and oriented, no apparent distress Abdomen - Soft, appropriately tender to palpation, non-distended, fundus firm at umbilicus Extremities - no edema, negative Jn's bilaterally Assessment: PPD 1 NVD Acute blood loss anemia Plan: Routine care. Encourage breast feeding. Encourage ambulation. Ferrous sulfate supplementation. Plan for discharge today Vitals - Labs Vital Signs - I&O Vital Signs Date Time Temp Pulse Resp B/P (MAP) Pulse Ox O2 Delivery O2 Flow Rate FiO2 11/17/19 08:45 36.4 99 18 135/88 (104) 98 Room Air 11/17/19 05:57 36.6 85 18 122/74 (90) Room Air 11/17/19 02:10 36.6 85 18 122/77 (92) Room Air 11/16/19 22:16 36.9 96 18 132/79 (96) Room Air 11/16/19 17:47 92 18 125/60 (81) Room Air 11/16/19 17:33 37.2 101 18 131/78 (95) Room Air 11/16/19 17:17 91 18 134/63 (86) Room Air 11/16/19 16:33 102 18 147/62 (90) Room Air 11/16/19 16:17 108 18 125/64 (84) Room Air 11/16/19 16:02 114 18 124/58 (80) Room Air 11/16/19 15:47 106 18 130/60 (83) Room Air 11/16/19 15:33 139 18 128/95 (106) Room Air 11/16/19 15:18 100 18 142/65 (90) Room Air 11/16/19 14:49 105 18 140/77 (98) 99 Room Air 11/16/19 14:34 103 18 125/75 (92) 98 Room Air 11/16/19 14:19 110 18 121/69 (86) 98 Room Air 11/16/19 14:04 96 18 130/73 (92) 98 Room Air 11/16/19 13:49 36.7 87 18 130/65 (86) 95 Room Air 11/16/19 13:32 97 18 131/67 (88) 95 Room Air 11/16/19 13:18 87 18 128/73 (91) 95 Room Air 11/16/19 13:04 93 18 125/73 (90) 96 Room Air 11/16/19 12:48 87 18 134/63 (86) 95 Room Air 11/16/19 12:33 37.4 100 18 126/65 (85) 94 Room Air 11/16/19 12:18 88 18 120/61 (80) 95 Room Air 11/16/19 12:04 87 18 131/61 (84) 95 Room Air 11/16/19 11:48 96 18 119/66 (83) 96 Room Air 11/16/19 11:43 Room Air I & O 11/17/19 07:00 Intake Total 1000 ml Balance 1000 ml Labs Laboratory Tests 11/17/19 04:27: White Blood Count 15.0H, Red Blood Count 3.35L, Hemoglobin 9.7L, Hematocrit 29L, Mean Corpuscular Volume 87, Mean Corpuscular Hemoglobin 29, Mean Corpuscular Hemoglobin Concent 33, Red Cell Distribution Width 14.6H, Platelet Count 230, M navi Platelet Volume 10.8H, Neutrophils (%) (Auto) 75, Lymphocytes (%) (Auto) 18, Monocytes (%) (Auto) 7, Eosinophils (%) (Auto) 1, Basophils (%) (Auto) 0, Neutrophils # (Auto) 11.2H, Lymphocytes # (Auto) 2.8, Monocytes # (Auto) 1.0, Eosinophils # (Auto) 0.1, Basophils # (Auto) 0.0 SHAY ROBLES DO Nov 17, 2019 11:43
[2019-11-17] MEDS ORDERED: IBUP-844 PO (11:45)
[2019-11-17] MEDS ORDERED: DIBU30OI TOP (11:45)
[2019-11-17] MEDS ORDERED: FERR325T18 PO (11:45)
[2019-11-17] MEDS ORDERED: BENZ78AE2 TP (11:45)
[2019-11-17] MEDS ORDERED: HYDR-3812 PO (11:45)
[2019-11-17] MEDS ORDERED: DCS100C PO (11:45)
--- NOTE | 2019-11-17 11:45 | NUR ---
here. pending dismissal orders received.
--- NOTE | 2019-11-17 11:47 | Discharge Inst-Women's Service ---
Discharge Inst-Women's Serv Depart Medication/Instructions New, Converted or Re-Newed RX: RX on Chart Final Diagnosis PPD 1 NVD Problems Reviewed?: Yes Consults/Follow Up Additional Follow Up: Yes Orders/Referrals Dr. Robles in 6 weeks Activity Activity: Activity as Tolerated Driving Instructions: No Driving for 1 Week NO SMOKING: NO SMOKING Nothing Inside Vagina: No Douching, No [place], No Tampons Diet Discharge Diet: No Restrictions Symptoms to Report to : Bleeding Excessive, Pain Increased, Fever Over 101 Degrees F, Vaginal Bleeding Increase, Questions/Concerns For Any Problems or Questions: Contact Your Physician SHAY ROBLES DO Nov 17, 2019 11:47
[2019-11-17] MEDS: DOCUSATE SODIUM 100 MG (COLACE) CAP PO SCH (12:23)
--- NOTE | 2019-11-17 17:16 | NUR ---
Discharge instructions given, verbalizes understanding. instructed pt to schedule follow up appointments & reviewed dismissal Rx's. signature page signed, placed on chart.
--- NOTE | 2019-11-17 17:40 | NUR ---
pt ambulated to private vehicle with staff, and infant @ side. infant secured in rear facing car seat. pt stable with no sx's of distress noted.
== END 2019-11-17 17:40 | disposition home or self-care (01) | DRG 806 ==
LOC: WSo 03:56 → LDRP 03:57 → WSo 06:12 → LDRP 18:20
PROVIDERS: ADMIT Obstetrics & Gynecology; ATTEND Obstetrics & Gynecology
PROC: 10E0XZZ Delivery of Products of Conception, External Approach (ICD-10-PCS; principal; 2019-11-16)
PROC: 0KQM0ZZ Repair Perineum Muscle, Open Approach (ICD-10-PCS; 2019-11-16)
PROC: 0W8NXZZ Division of Female Perineum, External Approach (ICD-10-PCS; 2019-11-16)
DX: O70.1 Second degree perineal laceration during delivery (principal); D62 Acute posthemorrhagic anemia; Z37.0 Single live birth; Z3A.39 39 weeks gestation of pregnancy; O90.81 Anemia of the puerperium
CPT/HCPCS: 36415; 81000; 85025; 86850; 86900; 86901; 99212

== ENCOUNTER → 2020-09-10 | Outpatient (CLI) | payer BC ==
[~2020-09-10] MED LIST: ACHD5005 PO; BENZ78AE5 TP; DCS100C PO; DIBU30OI TOP; FERR325T18 PO; IBUP-844 PO
--- NOTE | 2020-09-11 08:58 | Diagnostic Imaging Report ---
INDICATION: Undergoing anatomical assessment. TECHNIQUE: Multiple real-time grayscale images were obtained over the gravid uterus. COMPARISON: None FINDINGS: There is presence of single viable intrauterine . Currently in transverse orientation, head to maternal left. Normal amount of amniotic fluid. Placenta is posterior. However, there is what appears be a complete placenta previa. Cervical length at 5.3 cm. Visualized anatomical structures including kidneys, bladder, intracranial structures, four-chamber heart, three-vessel cord, spine and cord insertion site unremarkable. The stomach not well visualized. Maternal adnexa not imaged. Biometrical measurements are as follows: Biparietal 3.91 cm, age 18 weeks 0 days. Head circumference 15.11 cm, age 18 weeks 2 days. Abdominal circumference 15.19 cm, age 20 weeks 3 days. Femur length 3.03 cm, age 19 weeks 3 days. Sonographic estimate age: 19 weeks 1 days. Sonographic estimated date of delivery: 02/03/2021. Estimated Weight: 306 gm (+/- 45 gm). LMP percentile: 52%. heart rate: 156 beats per minute. number: 1 of 1. IMPRESSION: 1. Single viable intrauterine , currently in a transverse orientation, head to maternal left. 2. Sonographic estimated age 19 weeks 1 day for an estimated date of delivery 02/03/2021. 3. There is presence of a complete placenta previa. 4. Visualized anatomical structures are unremarkable. However, stomach is not well visualized. Dictated by: Dictated on workstation # [id number]
== END ==
LOC: RAD 15:15
PROVIDERS: ATTEND Nurse Practitioner Women's Health
DX: Z34.02 Encounter for supervision of normal first pregnancy, second trimester (principal); Z3A.19 19 weeks gestation of pregnancy
CPT/HCPCS: 76805

== ENCOUNTER → 2021-01-13 | Outpatient (CLI) | payer BC ==
[~2021-01-13] MED LIST changes: -DCS100C PO; +DOCU-239 PO
[2021-01-13 11:29] LABS: URINE CREATININE FOR RATIO 38 MG/DL (30-125)
[2021-01-13 11:30] LABS: URINE PROTEIN FOR RATIO ONLY < 6 MG/DL (6-12)
== END ==
LOC: LABNPT 10:49
PROVIDERS: ATTEND Obstetrics & Gynecology
DX: O13.9 Gestational [pregnancy-induced] hypertension without significant proteinuria, unspecified trimester (principal)
CPT/HCPCS: 82570; 84156

== ENCOUNTER 2021-01-31 21:25 | Inpatient (IN) | payer BC ==
[~2021-01-31] VITALS: Ht 154.9 cm; Wt 80.5 kg
[2021-01-31] VITALS (11 sets, daily range): BP systolic 115–140; BP diastolic 56–94
[2021-01-31] MEDS ORDERED: PREN-142 PO (21:43)
[2021-01-31] MEDS ORDERED: D5 LR IV SOLUTION 1,000 ML IV ONE (21:55)
[2021-01-31] MEDS ORDERED: D5 LR IV SOLUTION 1,000 ML IV SCH (22:00)
[2021-01-31] MEDS ORDERED: BUTORPHANOL INJ 2 MG/ML (STADOL) VIAL IV ONE (22:00)
[2021-01-31] MEDS ORDERED: CATHETER FLUSH 10 ML SYR IV SCH (22:00)
[2021-01-31 22:36] LABS: BASOPHILS % (AUTO) 0 % (0-10); EOSINOPHILS # (AUTO) 0.1 10^3/uL (0.0-0.3); EOSINOPHILS % (AUTO) 1 % (0-10); HEMATOCRIT 39 % (35-52); HEMOGLOBIN 12.9 g/dL (11.5-16.0); LYMPHOCYTES # (AUTO) 2.3 10^3/uL (1.0-4.0); LYMPHOCYTES % (AUTO) 16 % (12-44); MEAN CORPUSCULAR HEMOGLOBIN 28 pg (25-34); MEAN CORPUSCULAR HGB CONC 33 g/dL (32-36); MEAN CORPUSCULAR VOLUME 85 fL (80-99); MEAN PLATELET VOLUME 10.8 fL (9.0-12.2); MONOCYTES # (AUTO) 0.8 10^3/uL (0.0-1.0); MONOCYTES % (AUTO) 6 % (0-12); NEUTROPHILS % (AUTO) 77 % (42-75); PLATELET COUNT 265 10^3/uL (130-400); WHITE BLOOD COUNT 14.3 10^3/uL (4.3-11.0)
[2021-01-31 22:39] LABS: BILIRUBIN,URINE NEGATIVE (NEGATIVE); CLARITY,URINE CLEAR; COLOR,URINE YELLOW; GLUCOSE, URINE (UA) NEGATIVE (NEGATIVE); KETONES,URINE NEGATIVE (NEGATIVE); LEUKOCYTE ESTERASE ,URINE NEGATIVE (NEGATIVE); NITRITE,URINE NEGATIVE (NEGATIVE); PH,URINE 6.5 (5-9); PROTEIN,URINE TRACE (NEGATIVE)
[2021-01-31 22:46] LABS: BACTERIA,URINE TRACE /HPF; WBC,URINE 0-2 /HPF
[2021-01-31] MEDS: LACTATED RINGERS 1,000 ML IV SCH (22:50)
[2021-01-31 22:54] LABS: EOSINOPHILS % (MANUAL) 1 %; LYMPHOCYTES % (MANUAL) 12 %; MONOCYTES % (MANUAL) 8 %; NEUTROPHILS % (MANUAL) 79 %; RBC MORPH NORMAL
[2021-01-31] MEDS ORDERED: fentaNYL 2 mcg/ml BUPIVA 0.125 100 ML ONE (22:54)
[2021-01-31] MEDS ORDERED: BUPIVACAINE 0.25% 30 ML (SENSORCAINE) VIAL ONE (23:33)
[2021-01-31] MEDS ORDERED: fentaNYL INJ 100 MCG/2 ML AMP ONE (23:33)
[2021-02-01] VITALS (36 sets, daily range): BP systolic 113–196; BP diastolic 55–88
[2021-02-01] MEDS: LACTATED RINGERS 1,000 ML IV SCH (00:05)
[2021-02-01] MEDS ORDERED: diphenhydrAMINE 50 MG/ML INJ (BENADRYL) IV PRN (00:15)
[2021-02-01] MEDS ORDERED: NALOXONE 0.4 MG/ML 1 ML (NARCAN) VIAL IV PRN ×2 (00:15→04:45)
[2021-02-01] MEDS ORDERED: EPIDURAL (fentaNYL 2 MCG/ML BUPIVA 0.125%)100 ML BAG EPI PRN (00:15)
[2021-02-01] MEDS ORDERED: ONDANSETRON 4 MG/2 ML (SDV) Z0FRAN IV PRN (00:15)
[2021-02-01] MEDS ORDERED: OXYTOCIN PRE-MIX DRIP 500 ML IV ONE ×2 (02:44→04:50)
--- NOTE | 2021-02-01 04:40 | OB Labor & Delivery Record ---
L&D History Date of Service Date of Service: Feb 01, 2021 History Expected Date of Delivery: Jan 31, 2021 Gestational Age in Weeks: 40 Hx : 2 Hx Para: 1 Complications Events: Routine care Operative Indications (Cesarea: N/A-Vaginal Delivery Intrapartal Events: None L&D Stage1 Stage One Onset of Labor - Date: Feb 01, 2021 Monitors and Tracing Monitor Mode: External Heart Rate: 145 Monitor Accelerations: Uniform Welder Apprentice Variability: Average (6-10) Short Term Variability: Present Presentation: Vertex Vital Signs VS - Last 72 Hours, by Label 01/31/21 01/31/21 01/31/21 01/31/21 21:53 22:10 23:30 23:38 Temp 37.2 37.2 Pulse 73 73 86 90 Resp 18 18 18 18 B/P (MAP) 131/94 (106) 139/71 (93) 128/71 (90) Pulse Ox 97 97 97 O2 Delivery Room Air Room Air Room Air 01/31/21 01/31/21 01/31/21 01/31/21 23:40 23:43 23:47 23:50 Pulse 90 77 74 77 Resp 18 18 18 18 B/P (MAP) 139/78 (98) 140/85 (103) 133/73 (93) 122/62 (82) Pulse Ox 95 99 97 97 O2 Delivery Room Air Room Air Room Air Room Air 01/31/21 01/31/21 01/31/21 02/01/21 23:52 23:56 23:59 00:00 Pulse 79 85 79 79 Resp 18 18 18 18 B/P (MAP) 115/56 (75) 121/71 (88) 127/69 (88) 127/69 (88) Pulse Ox 98 O2 Delivery Room Air Room Air Room Air 02/01/21 02/01/21 02/01/21 02/01/21 00:02 00:05 00:10 00:15 Pulse 83 84 78 68 Resp 18 18 18 18 B/P (MAP) 125/64 (84) 123/60 (81) 122/61 (81) 117/60 (79) 02/01/21 02/01/21 02/01/21 02/01/21 00:20 00:30 00:45 01:00 Temp 37.2 Pulse 74 81 81 79 Resp 18 18 18 18 B/P (MAP) 118/61 (80) 117/57 (77) 114/59 (77) 122/63 (82) 02/01/21 02/01/21 02/01/21 02/01/21 01:15 01:30 01:45 02:00 Pulse 81 83 78 92 Resp 18 18 18 18 B/P (MAP) 118/63 (81) 124/62 (82) 123/61 (81) 113/88 (96) 02/01/21 02/01/21 02/01/21 02/01/21 02:15 02:30 02:45 03:00 Pulse 83 81 88 93 Resp 18 18 18 18 B/P (MAP) 121/67 (85) 123/64 (83) 122/72 (89) 120/70 (87) 02/01/21 03:15 Temp 37.5 Pulse 93 Resp 18 B/P (MAP) 125/70 (88) Rupture of Membranes Spontaneous Ruture of Membrane: No Amniotic Membrane Rupture Time: 16:05 Amniotic Membrane Fluid Desc.: Clear Vaginal Bleeding Description: Normal Show Induction/Anesthesia Epidural Cath Placement - Time: 5 Progress/Notes Patient admitted in active labor, she progressed to complete and 0 station with no further augmentation done, except AROM at complete. L&D Stage2 Stage Two Stage II Date: Feb 01, 2021 Monitors and Tracing Monitor Mode: External Heart Rate: 145 Monitor Accelerations: Uniform Monitor Decelerations: Variable Assisted Variability: Average (6-10) Short Term Variability: Present Position: Right Occiput Anterior Presentation: Vertex Cord Descript/Complications Cord Vessel Description: 3 Vessels Delivery Type Infant Delivery Method: Spontaneous Vaginal Anterior Shoulder: Left (compound presentation) Episiotomy/Perineal Laceration Laceraction(s)/Extensions: Yes Episiotomy Description: Vaginal Extension/lac, 1st degree Degree (describe repair) 1st degree vaginal laceration repaired using 3-0 rapide vicryl suture. Condition of Infant Delivery 1 minute Comment: 9 5 minute Comment: 9 Notes Live female weight 7lbs 9oz Condition of Condition of : Living Exam: No Observed Abnormalities Resuscitation Resuscitation: N/A - Spontaneous Resp L&D Stage3 Stage Three Stage III Date: Feb 01, 2021 Pictocin Pitocin Administration Comment: 30 mu wide open after delivery of placenta Placenta Delivery Placenta Delivery: Spontaneous Delivery Summary Summary Estimated blood loss (mL): 300 Attending at delivery: Shay Robles DO Condition of Delivery Examined: Cervix Examined, Uterus Explored Post Hemorrhage: No Condition of Mother stable Condition of (s) stable SHAY ROBLES DO Feb 01, 2021 04:40
--- NOTE | 2021-02-01 04:42 | History & Physical-OB ---
OB - Chief Complaint & HPI Date/Time Date of Admission: Date of Admission: Jan 31, 2021 at 21:52 Date seen by a Provider: Feb 01, 2021 Time Seen by a Provider: 04:05 Chief Complaint/History OB-Reason for Admission/Chief: Onset of Labor Hx : 2 Hx Para: 1 Expected Date of Delivery: Jan 31, 2021 Gestational Age in Weeks: 40 Gestational Age in Days: 0 Admission Nurse Assessment Rev: Yes Allergies and Home Medications Allergies Coded Allergies: No Known Drug Allergies (Unverified , 11/16/19) Patient Home Medication List Home Medication List Reviewed: Yes Vit No.124/Iron/FA ( Vitamin Tablet) 1 Each Tablet, 1 EACH PO, (Reported) Entered as Reported by: MARCELINO WONG on 01/31/212142 Last Action: New Order Discontinued Medications Benzocaine/Menthol (Dermoplast Pain Relieving [place]) 78 Gm Aerosol, 0 ML TP UD PRN for PAIN- SEE INSTRUCTIONS Discontinued Reason: No Longer Taking Prescribed by: SHAY ROBLES on 11/17/191144 Last Action: Discontinued Dibucaine (Dibucaine) 30 Gm Oint, 0 GM TOP UD PRN for PAIN- SEE INSTRUCTIONS Discontinued Reason: No Longer Taking Prescribed by: SHAY ROBLES on 11/17/191144 Last Action: Discontinued Docusate Sodium (Dok) 100 Mg Capsule, 100 MG PO BID PRN for CONSTIPATION-1ST LINE Discontinued Reason: No Longer Taking Prescribed by: SHAY ROBLES on 11/17/191144 Last Action: Discontinued Ferrous Sulfate (Ferrous Sulfate) 325 Mg Tablet, 325 MG PO DAILY@0800 Discontinued Reason: No Longer Taking Prescribed by: SHAY ROBLES on 11/17/191144 Last Action: Discontinued Hydrocodone/Acetaminophen (Hydrocodone-Acetamin 5-325 mg) 1 Each Tablet, 1 TAB PO Q4H PRN for PAIN-MODERATE (5-7) Discontinued Reason: No Longer Taking Prescribed by: SHAY ROBLES on 11/17/191144 Last Action: Discontinued Ibuprofen (Ibu) 600 Mg Tablet, 600 MG PO Q6H Discontinued Reason: No Longer Taking Prescribed by: SHAY ROBLES on 11/17/191144 Last Action: Discontinued OB - History Hx of Present Care: Yes Ultrasounds: Normal mid trimester US Obstetrical Complications: None Medical Complications: None Obstetrical History Hx : 2 Hx Para: 1 Delivery History Adverse Rxn to Tranfusion: No Patient Past Medical History n/a Social History/Family History 2nd Hand Smoke Exposure: No Immunizations Hepatitis A: Yes Hepatitis B: Yes OB - Admission Exam Physical Exam Vitals: Vital Signs 01/31/21 01/31/21 02/01/21 23:52 23:59 03:15 Temp 37.5 Pulse 93 Resp 18 B/P (MAP) 125/70 (88) Pulse Ox 98 O2 Delivery Room Air HEENT: NCAT Heart: Rhythm Normal Lungs: Clear Abdomen: Gravid Extremities: Normal Reflexes: Normal Cervical Dilatation: 5cm Effacement: 75% Station: -1 Membranes: Intact Heart Rate: 130's Accelerations: Accelerations Present Decelerations: No Decelerations Short Term Variability: Present Jail Variability: Average (6-25) Contractions on Admission: < 5 Minutes Apart Intensity: Firm Labs Laboratory Tests Test 01/31/21 21:40 01/31/21 22:10 Range/Units Urine Color YELLOW Urine Clarity CLEAR Urine pH 6.5 5-9 Urine Specific [place] 1.020 1.016-1.022 Urine Protein TRACE H NEGATIVE Urine Glucose (UA) NEGATIVE NEGATIVE Urine Ketones NEGATIVE NEGATIVE Urine Nitrite NEGATIVE NEGATIVE Urine Bilirubin NEGATIVE NEGATIVE Urine Urobilinogen 0.2 < = 1.0 MG/DL Urine Leukocyte Esterase NEGATIVE NEGATIVE Urine RBC (Auto) NEGATIVE NEGATIVE Urine RBC NONE /HPF Urine WBC 0-2 /HPF Urine Squamous Epithelial Cells 2-5 /HPF Urine Renal Epithelial Cells NONE /HPF Urine Crystals NONE /LPF Urine Bacteria TRACE /HPF Urine Casts NONE /LPF Urine Mucus NEGATIVE /LPF Urine Culture Indicated NO White Blood Count 14.3 H 4.3-11.0 10^3/uL Red Blood Count 4.55 3.80-5.11 10^6/uL Hemoglobin 12.9 11.5-16.0 g/dL Hematocrit 39 35-52 % Mean Corpuscular Volume 85 80-99 fL Mean Corpuscular Hemoglobin 28 25-34 pg Mean Corpuscular Hemoglobin Concent 33 32-36 g/dL Red Cell Distribution Width 14.3 10.0-14.5 % Platelet Count 265 130-400 10^3/uL Mean Platelet Volume 10.8 9.0-12.2 fL Immature Granulocyte % (Auto) 1 % Neutrophils (%) (Auto) 77 H 42-75 % Lymphocytes (%) (Auto) 16 12-44 % Monocytes (%) (Auto) 6 0-12 % Eosinophils (%) (Auto) 1 0-10 % Basophils (%) (Auto) 0 0-10 % Neutrophils # (Auto) 11.0 H 1.8-7.8 10^3/uL Lymphocytes # (Auto) 2.3 1.0-4.0 10^3/uL Monocytes # (Auto) 0.8 0.0-1.0 10^3/uL Eosinophils # (Auto) 0.1 0.0-0.3 10^3/uL Basophils # (Auto) 0.0 0.0-0.1 10^3/uL Immature Granulocyte # (Auto) 0.1 0.0-0.1 10^3/uL Neutrophils % (Manual) 79 % Lymphocytes % (Manual) 12 % Monocytes % (Manual) 8 % Eosinophils % (Manual) 1 % Blood Morphology Comment NORMAL OB - Assessment/Plan/Diagnosis Assessment Assessment: active labor Admission Dx 30 yo @ 40 weeks Active labor GBS neg Admission Status: Inpatient Order (span 2 midnights) Reason for Inpatient Admission: Active labor at 40 weeks Plan Plan: Expectant Management SHAY ROBLES DO Feb 01, 2021 04:42
--- NOTE | 2021-02-01 04:43 | Discharge Inst-Women's Service ---
Discharge Inst-Women's Serv Depart Medication/Instructions New, Converted or Re-Newed RX: Transmitted to Pharmacy Final Diagnosis PPD 1 NVD Problems Reviewed?: Yes Consults/Follow Up Additional Follow Up: Yes Orders/Referrals Dr. Robles in 6 weeks Activity Activity: Activity as Tolerated Driving Instructions: No Driving for 1 Week NO SMOKING: NO SMOKING Nothing Inside Vagina: No Douching, No [place], No Tampons Diet Discharge Diet: No Restrictions Symptoms to Report to : Bleeding Excessive, Pain Increased, Fever Over 101 Degrees F, Vaginal Bleeding Increase, Questions/Concerns For Any Problems or Questions: Contact Your Physician SHAY ROBLES DO Feb 01, 2021 04:43
[2021-02-01] MEDS ORDERED: FERR325T24 PO (04:44)
[2021-02-01] MEDS ORDERED: DOCU100C37 PO (04:44)
[2021-02-01] MEDS ORDERED: BENZ78AE5 TP (04:44)
[2021-02-01] MEDS ORDERED: ACHD5005 PO (04:44)
[2021-02-01] MEDS ORDERED: DIBU30OI TOP (04:44)
[2021-02-01] MEDS ORDERED: IBUP-844 PO (04:44)
[2021-02-01] MEDS ORDERED: HYDROcodone/APAP 5 MG/325 MG (LORTAB) TAB PO PRN (04:45)
[2021-02-01] MEDS ORDERED: WITCH HAZEL(TUCKS) 40 EA JAR TOP PRN (04:45)
[2021-02-01] MEDS ORDERED: TETANUS,DIPTH,PERTUSS P/F (BOOSTRIX) 0.5 ML VIAL IM ONE (04:45)
[2021-02-01] MEDS ORDERED: DIBUCAINE 1% OINTMENT 30 GM TUBE TOP PRN (04:45)
[2021-02-01] MEDS ORDERED: BENZOCAINE/MENTHOL (DERMOPLAST) 56 ML CAN TP PRN (04:45)
[2021-02-01] MEDS ORDERED: MEASLES,MUMPS,RUBELLA 1 EA INJ SQ ONE (04:45)
[2021-02-01] MEDS ORDERED: OXYTOCIN PRE-MIX DRIP 500 ML IV SCH (04:45)
[2021-02-01] MEDS ORDERED: CATHETER FLUSH 10 ML SYR IV SCH (06:00)
[2021-02-01] MEDS: IBUPROFEN 600 MG (MOTRIN) TAB PO SCH ×3 (06:05→18:01)
--- NOTE | 2021-02-01 08:39 | Anesthesia-Regional Post-Op ---
Regional Patient Condition Mental Status: Alert, Oriented x3 Circulation: Same as Pre-Op Headache: Absent Sensation: Full Recovery Motor Block: Absent Post Op Complications Complications None Follow Up Care/Instructions Patient Instructions None needed. Anesthesia/Patient Condition Patient is doing well, no complaints, stable vital signs, no apparent adverse anesthesia problems. No complications reported per nursing. D/C home per [facility] Criteria: Yes ARTIS CONTRERAS CRNA Feb 01, 2021 08:39
[2021-02-01] MEDS: DOCUSATE SODIUM 100 MG (COLACE) CAP PO SCH ×2 (20:08→21:03)
[2021-02-01] MEDS: FERROUS SULF 325 MG (IRON) TAB PO SCH (20:08)
[2021-02-01] MEDS: PRENATAL VITAMIN 1 EA TAB PO SCH (20:08)
[2021-02-02 00:42] VITALS: BP 133/78
[2021-02-02] MEDS: IBUPROFEN 600 MG (MOTRIN) TAB PO SCH ×3 (00:42→12:02)
[2021-02-02 06:22] VITALS: BP 138/74
[2021-02-02 06:26] LABS: BASOPHILS # (AUTO) 0.1 10^3/uL (0.0-0.1); BASOPHILS % (AUTO) 1 % (0-10); EOSINOPHILS # (AUTO) 0.3 10^3/uL (0.0-0.3); EOSINOPHILS % (AUTO) 3 % (0-10); HEMATOCRIT 33 % (35-52); HEMOGLOBIN 10.6 g/dL (11.5-16.0); LYMPHOCYTES # (AUTO) 2.7 10^3/uL (1.0-4.0); LYMPHOCYTES % (AUTO) 29 % (12-44); MEAN CORPUSCULAR HEMOGLOBIN 29 pg (25-34); MEAN CORPUSCULAR HGB CONC 33 g/dL (32-36); MEAN CORPUSCULAR VOLUME 88 fL (80-99); MEAN PLATELET VOLUME 10.9 fL (9.0-12.2); MONOCYTES # (AUTO) 0.5 10^3/uL (0.0-1.0); MONOCYTES % (AUTO) 5 % (0-12); NEUTROPHILS # (AUTO) 5.7 10^3/uL (1.8-7.8); NEUTROPHILS % (AUTO) 61 % (42-75); PLATELET COUNT 214 10^3/uL (130-400); WHITE BLOOD COUNT 9.4 10^3/uL (4.3-11.0)
[2021-02-02] MEDS: FERROUS SULF 325 MG (IRON) TAB PO SCH (08:41)
[2021-02-02] MEDS: DOCUSATE SODIUM 100 MG (COLACE) CAP PO SCH (08:41)
[2021-02-02] MEDS: PRENATAL VITAMIN 1 EA TAB PO SCH (08:41)
--- NOTE | 2021-02-02 10:13 | Postpartum Progress Note ---
Note Note Day # 1 Subjective: Patient is without complaints. Ambulating, voiding. Tolerating a regular diet without nausea or vomiting. Normal lochia. Pain is well controlled with oral pain medications. Breast feeding. Objective: Physical Exam: General - Alert and oriented, no apparent distress Abdomen - Soft, appropriately tender to palpation, non-distended, fundus firm at umbilicus Extremities - no edema, negative Jn's bilaterally Assessment: Post- day # 1, status post vaginal delivery. Recovering well, hemodynamically stable Acute blood loss anemia Plan: Routine care. Encourage breast feeding. Encourage ambulation. Ferrous sulfate supplementation. Plan for discharge today Vitals - Labs Vital Signs - I&O Vital Signs Date Time Temp Pulse Resp B/P (MAP) Pulse Ox O2 Delivery O2 Flow Rate FiO2 02/02/21 06:22 36.0 66 18 138/74 (95) Room Air 02/02/21 00:42 36.0 68 18 133/78 (96) 98 Room Air 02/01/21 21:03 36.6 88 18 129/76 (93) 98 Room Air 02/01/21 16:35 36.7 87 18 119/81 (94) Room Air 02/01/21 12:14 36.5 88 18 115/75 (88) 98 Room Air Labs Laboratory Tests 02/02/21 05:27: White Blood Count 9.4, Red Blood Count 3.71L, Hemoglobin 10.6L, Hematocrit 33L, Mean Corpuscular Volume 88, Mean Corpuscular Hemoglobin 29, Mean Corpuscular Hemoglobin Concent 33, Red Cell Distribution Width 14.8H, Platelet Count 214, Mean Platelet Volume 10.9, Immature Granulocyte % (Auto) 1, Neutrophils (%) (Auto) 61, Lymphocytes (%) (Auto) 29, Monocytes (%) (Auto) 5, Eosinophils (%) (Auto) 3, Basophils (%) (Auto) 1, Neutrophils # (Auto) 5.7, Lymphocytes # (Auto) 2.7, Monocytes # (Auto) 0.5, Eosinophils # (Auto) 0.3, Basophils # (Auto) 0.1, Immature Granulocyte # (Auto) 0.1 STEPHANIE GURROLA CRANKSHAFT GRINDER Feb 02, 2021 10:13
[2021-02-02 12:01] VITALS: BP 130/87
== END 2021-02-02 12:30 | disposition home or self-care (01) | DRG 806 ==
LOC: WSo 21:25 → LDRP 21:52
PROVIDERS: ADMIT Obstetrics & Gynecology; ATTEND Obstetrics & Gynecology
PROC: 10E0XZZ Delivery of Products of Conception, External Approach (ICD-10-PCS; principal; 2021-02-01)
PROC: 0HQ9XZZ Repair Perineum Skin, External Approach (ICD-10-PCS; 2021-02-01)
PROC: 0W8NXZZ Division of Female Perineum, External Approach (ICD-10-PCS; 2021-02-01)
DX: O70.0 First degree perineal laceration during delivery (principal); D62 Acute posthemorrhagic anemia; Z37.0 Single live birth; Z3A.40 40 weeks gestation of pregnancy; O32.6XX0 Maternal care for compound presentation, not applicable or unspecified; O90.81 Anemia of the puerperium
CPT/HCPCS: 36415; 81000; 85007; 85025; 85027; 86850; 86900; 86901; 99212